=== PATIENT | female | born 1940 | race Caucasian/White ===

== ENCOUNTER 2021-10-20 06:34 | Day surgery (SDC) | payer OTHER ==
[2021-10-16 16:22] LABS: Absolute Lymphocytes (CBC) 1.3 K/uL (0.7-4.9); Lymphocytes % 21.9 % (15.3-44.8); MPV 9.2 fL (7.6-11.3); RBC Red Blood Cell Count 4.22 M/uL (3.86-4.86)
[2021-10-16 16:25] LABS: Protime INR 1.39
[2021-10-16 16:30] LABS: Potassium 3.3 mmol/L (3.5-5.1)
[2021-10-16 17:08] LABS: Urine Appearance TURBID (Clear); Urine Bilirubin NEGATIVE (Negative); Urine Blood 1+ (Negative); Urine Color YELLOW (Yellow); Urine Glucose NEGATIVE (Negative); Urine Specific Gravity >=1.030 (1.005-1.030)
[2021-10-16 17:09] LABS: Urine Bacteria 20-50 /HPF (<20); Urine Microscopic Reflex ORDER UMIC; Urine Protein 1+ (Negative); Urine pH 5.5 (5.0-7.0)
[2021-10-16 17:10] LABS: Urine Mucus 2+ /HPF (NONE SEEN)
[2021-10-20] MEDS ORDERED: Ringers Lactate 1,000 ML IV ONE ×2 (07:30→12:18)
[2021-10-20] MEDS ORDERED: LIDOCAINE 1% W/EPI 1:100,000 MDV 20 ML VIAL ONE (09:32)
[2021-10-20] MEDS ORDERED: CEFAZOLIN SODIUM 1 GM/VIAL ONE (09:33)
[2021-10-20] MEDS ORDERED: FENTANYL CITR 100 MCG/2 ML ONE (09:47)
[2021-10-20] MEDS ORDERED: propofoL 200 MG/20 ML VIAL IV ONE (09:48)
[2021-10-20] MEDS ORDERED: MIDAZOLAM HCL 2 MG/2 ML INJ ONE (09:48)
[2021-10-20] MEDS ORDERED: LIDOCAINE 2% MPF 5 ML VIAL ONE (09:48)
[2021-10-20] MEDS ORDERED: ONDANSETRON 4 MG/2 ML VIAL ONE (09:48)
[2021-10-20] MEDS ORDERED: dexAMETHasone 10 MG/ML VIAL ONE (09:48)
[2021-10-20] MEDS: CEFAZOLIN 2 GM IN 0.9% NACL 2 GM/100 ML BAG ONE ×3 (10:01→10:35)
[2021-10-20] MEDS ORDERED: NA CHLORIDE 0.9% 100 ML ONE (10:09)
[2021-10-20] MEDS: VASOPRESSIN 20 UNIT/ML VIAL ONE ×2 (10:23→11:00)
[2021-10-20] MEDS ORDERED: GLYCOPYRROLATE 0.2 MG/ML SYR ONE (10:35)
[2021-10-20] MEDS ORDERED: EPHEDRINE SULF 50 MG/ML VIAL ONE (10:38)
--- NOTE | 2021-10-20 10:46 | P.BOP ---
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
[2021-10-20] MEDS ORDERED: NS 0.9% VIAL 30 ML ONE (11:46)
[2021-10-20] MEDS ORDERED: VASOPRESSIN 20 UNIT/ML VIAL ONE (11:50)
[2021-10-20 14:54] VITALS: O2SAT 96
[2021-10-20] MEDS ORDERED: ONDANSETRON 4 MG/2 ML VIAL IV PRN (15:23)
[2021-10-20] MEDS ORDERED: PROMETHAZINE INJ 25 MG/ML AMP IV PRN (15:23)
[2021-10-20] MEDS ORDERED: ACETAMINOPHEN 500 MG TAB PO PRN (15:23)
[2021-10-20] MEDS ORDERED: MORPHINE 2 MG/ML SYR IV PRN (15:23)
[2021-10-20 16:54] VITALS: BMI 3702.8
[2021-10-20] MEDS: HEPARIN 5000 UNIT/ML 1 ML VIAL SQ SCH (18:18)
[2021-10-20] MEDS: Ringers Lactate 1,000 ML IV SCH (20:30)
[2021-10-20] MEDS ORDERED: HOME MED 1 EA UNK [BIMATOPROST OPHTH DROPS/2.5 ML BTL] OPTH SCH (21:00)
[2021-10-20] MEDS ORDERED: clonazePAM 0.5 MG TAB PO SCH (21:00)
[2021-10-20] MEDS ORDERED: ATORVASTATIN 40 MG TAB PO SCH (21:00)
[2021-10-21] MEDS: HEPARIN 5000 UNIT/ML 1 ML VIAL SQ SCH ×2 (01:34→08:46)
[2021-10-21] MEDS: Ringers Lactate 1,000 ML IV SCH (03:50)
[2021-10-21] MEDS ORDERED: LEVOTHYROXINE SOD 0.05 MG TABLET PO SCH (06:00)
[2021-10-21 06:12] LABS: Absolute Lymphocytes (CBC) 0.7 K/uL (0.7-4.9); Hematocrit 31.1 % (36.0-45.0); Lymphocytes % 4.4 % (15.3-44.8); MPV 8.6 fL (7.6-11.3); RBC Red Blood Cell Count 3.47 M/uL (3.86-4.86)
[2021-10-21 08:21] LABS: White Blood Cell Scan OK (OK)
[2021-10-21 08:22] LABS: Blood Morphology Comment NOT SEEN (NOT SEEN); Platelet Estimate ADEQ
[2021-10-21] MEDS ORDERED: HOME MED 1 EA UNK (Mirabegron [Myrbetriq] 50 MG Tab.Er.24h) PO SCH (09:00)
[2021-10-21] MEDS ORDERED: AMIODARONE HCL 200 MG TAB PO SCH (09:00)
[2021-10-21] MEDS ORDERED: POLYETHYL GLY 3350 17 GM/DOSE PO SCH (09:00)
[2021-10-21] MEDS ORDERED: LUTEIN 40 MG PO SCH (09:00)
[2021-10-21] MEDS ORDERED: CALCIUM CARB 500MG/VIT D 200 IU TAB PO SCH (09:00)
[2021-10-21] MEDS ORDERED: AMLODIPINE 5 MG TAB PO SCH (09:00)
[2021-10-21] MEDS ORDERED: HOME MED 1 EA UNK (Calcium Carbonate/Vitamin D3 [Calcium 500-Vit D3 600 Tablet] Tablet) PO SCH (09:00)
[2021-10-21] MEDS ORDERED: FAMOTIDINE 20 MG TAB PO SCH (09:00)
[2021-10-21 09:04] VITALS: BP 119/69
[2021-10-21 09:41] VITALS: TEMP 97.8
== END 2021-10-21 12:45 | disposition home or self-care (01) ==
LOC: OR 06:34 → 2ND-WC 15:40 → OR 10-21 12:45
PROVIDERS: ATTEND Obstetrics & Gynecology
PROC: 0TSD0ZZ Reposition Urethra, Open Approach (ICD-10-PCS; 2021-10-20)
PROC: 0ULG7ZZ Occlusion of Vagina, Via Natural or Artificial Opening (ICD-10-PCS; principal; 2021-10-20 09:30)
DX: N81.12 Cystocele, lateral (principal); N39.41 Urge incontinence; N32.81 Overactive bladder; N95.2 Postmenopausal atrophic vaginitis; N76.89 Other specified inflammation of vagina and vulva; I48.0 Paroxysmal atrial fibrillation; I10 Essential (primary) hypertension; Z20.822 Contact with and (suspected) exposure to COVID-19
CPT/HCPCS: 87088; 85025 ×2; 87086; 80048; 36415 ×2; 86900; 86850; 84132; 85610; 86901; 88302; 85730; 57120; 57288; U0003; J2704; J1644; J3010; J1100; J0690 ×2; J7120 ×4; J2405; 81003; 81015; 88305; J2250